=== PATIENT | female | born 1935 | race Two or more races ===

== ENCOUNTER 2021-06-28 09:47 | Inpatient (IN) | payer MEDICARE ==
[~2021-06-28] VITALS: Ht 160 cm; Wt 41.7 kg
--- NOTE | 2021-06-28 10:20 | NUR ---
BIB SON, DOG BITE TO RIGHT FOREARM SUSTAINED WHILE PETTING NEIGHBOR'S DOG2 DAYS AGO. AMBULATORY, PLACED ON BED, AAOX4. SEEN BY
[2021-06-28] MEDS ORDERED: BACI/NEOM/POLY B OINT PKT 1 UDPKT PACKET TP ONE (10:30)
[2021-06-28] MEDS ORDERED: IV NS 0.9% 1,000 ML BAG IV ONE (12:30)
[2021-06-28] MEDS ORDERED: PIPERACILLIN /TAZOBACTAM 3.375 G in IV D5W 50 ML IV ONE (12:30)
[2021-06-28] MEDS ORDERED: VANCOMYCIN 1 GM in IV D5W 250 ML IV ONE (12:30)
--- NOTE | 2021-06-28 12:36 | NUR ---
COVID ANTIGEN SWAB DONE AND SENT TO THE LAB
[2021-06-28 12:59] LABS: CALCIUM, SERUM 8.8 mg/dL (8.5-10.1); CREATININE 1.3 mg/dL (0.6-1.3); POTASSIUM 3.5 mmol/L (3.5-5.1)
[2021-06-28 13:12] LABS: BASOPHILS % (AUTO) 0.2 % (0.0-2.0); HEMATOCRIT 39 % (33-45); HEMOGLOBIN 12.9 g/dL (11.5-14.8); LYMPHOCYTES # (AUTO) 1.2 K/uL (0.8-4.8); MEAN CORPUSCULAR HGB CONC 33 g/dl (31.0-36.0); MEAN CORPUSCULAR VOLUME 87 fL (82-100); MONOCYTES % (AUTO) 9.3 % (2.0-12.0); NEUTROPHILS # (AUTO) 8.6 K/uL (1.8-8.9); NEUTROPHILS % (AUTO) 79.5 % (43.0-81.0); PLATELET COUNT (AUTO) 242 K/uL (150-450); RED BLOOD CELL COUNT(AUTO) 4.51 MIL/uL (4.0-5.2); WHITE BLOOD COUNT (AUTO) 10.8 K/uL (4.3-11.0)
--- NOTE | 2021-06-28 13:42 | NUR ---
BED [id number]
--- NOTE | 2021-06-28 13:58 | NUR ---
REPORT GIVEN TO NURSE VALDIVIA FOR DEACON
--- NOTE | 2021-06-28 14:55 | NUR ---
MS RN NOTES PATIENT ADMITTED FROM ER REPORT GIVEN BY WADE ESTRADA. ALERT ORIENTED X4. NO ACUTE DISTRESS NOTED. RIGHT LOWER ARM DRESSING XCLEAN DRY AND INTACT WITH ARM SLING IN PLACE. DENIED ANY PAIN AT THIS TIME. ORIENTED TO THE ROOM. SAFETY MEASURES IN PLACE. CALL LIGHT WITHIN REACH. WILL CONTINUE TO MONITOR ACCORDINGLY.
--- NOTE | 2021-06-28 15:52 | NUR ---
MS RN NOTES NOTIFIED DR ANASTASIA IVEY REGARDING PATIENT ARRIVAL IN THE UNIT, MADE AWARE THAT NO ADMISSION ORDERS YET AND THAT VTE SCORE IS 5, AWAITING FOR CALL BACK.
[2021-06-28 16:00] VITALS: BP 113/59
[2021-06-28] MEDS ORDERED: LORA-259 PO (16:12)
[2021-06-28] MEDS ORDERED: HYDROCODONE/APAP 5/325MG TABLET PO PRN (16:30)
[2021-06-28] MEDS ORDERED: ACETAMINOPHEN 325 MG TABLET PO PRN (16:30)
[2021-06-28] MEDS ORDERED: ONDANSETRON HCL/PF 4 MG/2 ML VIAL IVP PRN (16:30)
[2021-06-28] MEDS ORDERED: Z GUARD REMEDY 4 OZ OINT TP PRN (16:30)
[2021-06-28] MEDS: ENOXAPARIN SODIUM 30 MG/0.3 ML DISP.SYRIN SQ SCH (17:26)
[2021-06-28] MEDS ORDERED: PIPERACILLIN /TAZOBACTAM 3.375 G in IV D5W 50 ML IV SCH (18:00)
[2021-06-28] MEDS: ZOSYN IVPB 2.25 G in IV D5W 50ml IV SCH (18:29)
--- NOTE | 2021-06-28 18:51 | NUR ---
MS RN CLOSING NOTES PATIENT LYING IN BED, ALERT ORIENTED X4. NO ACUTE DISTRESS NOTED. RIGHT LOWER ARM DRESSING CLEAN DRY AND INTACT WITH ARM SLING IN PLACE. DENIED ANY PAIN AT THIS TIME. NEEDS ATTENDED AND ANTICIPATED. SAFETY MEASURES IN PLACE. CALL LIGHT WITHIN REACH. WILL ENDORSE TO NIGHT NURSE FOR CONTINUITY OF CARE.
--- NOTE | 2021-06-28 19:30 | NUR ---
MS RN OPENING NOTE RECEIVED PT AWAKE IN BED. A/O X 4, ABLE TO MAKE NEEDS KNOWN. PT STABLE ON ROOM AIR. NO SOB OR S/S OF RESPIRATORY DISTRESS. BREATHING EVEN AND UNLABORED. IV ACCESS LFA 20 GAUGE, INTACT AND PATENT. R FOREARM CAST C/D/I. SAFETY PRECAUTIONS IN PLACE. BED IN LOWEST LOCKED POSITION, HOB ELEVATED, SIDE RAILS UP X2, AND CALL LIGHT AND TABLE WITHIN REACH. ALL NEEDS MET AT THIS TIME.
[2021-06-28 20:58] VITALS: BP 111/65
[2021-06-29] MEDS: ZOSYN IVPB 2.25 G in IV D5W 50ml IV SCH ×4 (00:42→18:32)
[2021-06-29 06:31] LABS: BASOPHILS % (AUTO) 0.2 % (0.0-2.0); EOSINOPHILS % (AUTO) 0.1 % (0.0-6.0); HEMATOCRIT 35 % (33-45); HEMOGLOBIN 11.4 g/dL (11.5-14.8); LYMPHOCYTES % (AUTO) 9.4 % (20.0-44.0); MEAN CORPUSCULAR HGB CONC 33 g/dl (31.0-36.0); MEAN CORPUSCULAR VOLUME 87 fL (82-100); MONOCYTES % (AUTO) 9.8 % (2.0-12.0); NEUTROPHILS # (AUTO) 8.2 K/uL (1.8-8.9); NEUTROPHILS % (AUTO) 80.5 % (43.0-81.0); PLATELET COUNT (AUTO) 231 K/uL (150-450); RED BLOOD CELL COUNT(AUTO) 3.99 MIL/uL (4.0-5.2); WHITE BLOOD COUNT (AUTO) 10.2 K/uL (4.3-11.0)
--- NOTE | 2021-06-29 06:41 | NUR ---
MS RN CLOSING NOTE PT AWAKE IN BED. A/O X 4, ABLE TO MAKE NEEDS KNOWN. PT STABLE ON ROOM AIR. NO SOB OR S/S OF RESPIRATORY DISTRESS. BREATHING EVEN AND UNLABORED. IV ACCESS LFA 20 GAUGE, INTACT AND PATENT. R FOREARM CAST C/D/I. SAFETY PRECAUTIONS IN PLACE AT ALL TIMES. BED IN LOWEST LOCKED POSITION, HOB ELEVATED, SIDE RAILS UP X2, AND CALL LIGHT AND TABLE WITHIN REACH. ALL NEEDS MET AT THIS TIME AND WILL ENDORSE TO ONCOMING NURSE FOR DEACON.
[2021-06-29 07:13] LABS: ALBUMIN 2.4 g/dL (3.4-5.0); BILIRUBIN,TOTAL 0.7 mg/dL (0.2-1.0); CALCIUM, SERUM 8.1 mg/dL (8.5-10.1); CREATININE 1.1 mg/dL (0.6-1.3); MAGNESIUM 2.1 mg/dL (1.8-2.4); PHOSPHORUS 3.5 mg/dL (2.5-4.9); POTASSIUM 3.6 mmol/L (3.5-5.1); TOTAL PROTEIN, SERUM 5.8 g/dL (6.4-8.2)
--- NOTE | 2021-06-29 07:20 | NUR ---
RN OPENING NOTE- PT ASLEEP IN BED, EASILY AWAKENED, A/O X 4, ABLE TO MAKE NEEDS KNOWN. PT STABLE ON ROOM AIR. NO SOB OR S/S OF RESPIRATORY DISTRESS. BREATHING EVEN AND NON-LABORED. IV ACCESS LFA 20 GAUGE, RFA SPLINT C/D/I. SAFETY PRECAUTIONS IN PLACE. BED IN LOWEST LOCKED POSITION, HOB ELEVATED, SIDE RAILS UP X2, AND CALL LIGHT AND TABLE WITHIN REACH. ALL NEEDS MET AT THIS TIME. MONITOR / ASSIST
[2021-06-29] MEDS: PANTOPRAZOLE 40 MG TABLET.DR PO SCH (07:50)
[2021-06-29 07:57] LABS: THYROID STIMULATING HORMONE 1.479 uIU/mL (0.358-3.74)
[2021-06-29] MEDS: ENOXAPARIN SODIUM 30 MG/0.3 ML DISP.SYRIN SQ SCH (08:29)
--- NOTE | 2021-06-29 09:16 | NUR ---
WOUND CARE CONSULT: PT SEEN FOR PUNCTURE WOUNDS TO RT ARM, PRESENT ON ADMISSION. RECOMMENDATIONS MADE FOR WOUND CARE AND SKIN PROTECTION. DISCUSSED WITH NURSING STAFF. MSG LEFT FOR DR OSULLIVAN. IN AGREEMENT WITH PLAN OF CARE. Addendum: 06/29/21 at 0926 by HERNANDEZ MEREDITH WNDNU SPLINT WAS GENTLY OPENED, THEN REPLACED. ARM ELEVATED. WOUND CARE ORDERS APPROVED BY DR OSULLIVAN FOR [employer].
[2021-06-29] MEDS: NICOTINE PATCH (21MG) 21 MG PATCH.TD24 TD SCH (09:25)
[2021-06-29] MEDS ORDERED: CLOP75TA15 PO (16:40)
[2021-06-29] MEDS ORDERED: DOXA8TAB79 PO (16:40)
[2021-06-29] MEDS ORDERED: DILT180C93 PO (16:40)
[2021-06-29] MEDS ORDERED: ATOR40TA PO (16:40)
[2021-06-29] MEDS ORDERED: LORA-259 PO (16:40)
[2021-06-29] MEDS ORDERED: LORAZEPAM 1 MG TABLET PO PRN (17:00)
[2021-06-29] MEDS: DILTIAZEM HCL CD 180 MG PO SCH (17:35)
[2021-06-29] MEDS: ATORVASTATIN 40 MG TABLET PO SCH (17:35)
--- NOTE | 2021-06-29 18:43 | NUR ---
RN CLOSING NOTE- WOUND CARE DONE, REVIEWED WOUND AND HAS PT PREPPED FOR SURGICAL DEBRIDEMENT TOMORROW MORNING. CONSENT DONE AND IN CHART. NPO AFTER MN X RX. PT CALM INTERACTIVE, AOX4, DENIES PAIN. NEEDS ATTENDED. SIDE RAILS UP. CALL LIGHT IN REACH. BED LOCKED. MONITOR
--- NOTE | 2021-06-29 19:35 | NUR ---
MS RN OPENING NOTES RECEIVED PATIENT LAYING AWAKE IN BED. A/O X 4. PATIENT WITH REGULAR AND UNLABORED BREATHING ON ROOM AIR, TOLERATED WELL. NO SIGNS AND SYMPTOMS OF DISTRESS NOTED AT THIS TIME. NO COMPLAINS OF PAIN OR DISCOMFORT AT THIS TIME. IV ACCESS LFA G #20 SL. IV ACCESS PATENT AND INTACT. SAFETY PRECAUTIONS ENFORCED WITH BED LOCKED AND AT LOWEST POSITION. SIDERAILS UP X2. CALL LIGHT WITHIN REACH AT ALL TIMES. WILL CONTINUE TO MONITOR PATIENT.
[2021-06-29 20:00] VITALS: BP 94/50
[2021-06-30] MEDS: ZOSYN IVPB 2.25 G in IV D5W 50ml IV SCH ×5 (06:06→18:15)
[2021-06-30 06:08] LABS: CALCIUM, SERUM 8.2 mg/dL (8.5-10.1); CARBON DIOXIDE 28 mmol/L (21-32); CHLORIDE 106 mmol/L (98-107); CREATININE 1.2 mg/dL (0.6-1.3); GLUCOSE 100 mg/dL (74-106); MAGNESIUM 2.1 mg/dL (1.8-2.4); PHOSPHORUS 3.9 mg/dL (2.5-4.9); POTASSIUM 3.4 mmol/L (3.5-5.1); SODIUM SERUM 141 mmol/L (136-145); UREA NITROGEN, BLOOD 18 mg/dL (7-18)
[2021-06-30 06:20] LABS: BASOPHILS % (AUTO) 0.4 % (0.0-2.0); EOSINOPHILS % (AUTO) 0.2 % (0.0-6.0); HEMATOCRIT 34 % (33-45); HEMOGLOBIN 11.3 g/dL (11.5-14.8); LYMPHOCYTES # (AUTO) 1.2 K/uL (0.8-4.8); LYMPHOCYTES % (AUTO) 14.1 % (20.0-44.0); MEAN CORPUSCULAR HGB CONC 33 g/dl (31.0-36.0); MEAN CORPUSCULAR VOLUME 87 fL (82-100); MONOCYTES # (AUTO) 0.9 K/uL (0.1-1.30); MONOCYTES % (AUTO) 10.3 % (2.0-12.0); NEUTROPHILS # (AUTO) 6.6 K/uL (1.8-8.9); PLATELET COUNT (AUTO) 246 K/uL (150-450); RED BLOOD CELL COUNT(AUTO) 3.92 MIL/uL (4.0-5.2); WHITE BLOOD COUNT (AUTO) 8.7 K/uL (4.3-11.0)
--- NOTE | 2021-06-30 07:03 | NUR ---
MS RN CLOSING NOTES PATIENT STILL LAYING AWAKE IN BED. A/O X 4. PATIENT WITH REGULAR AND UNLABORED BREATHING ON ROOM AIR, TOLERATED WELL. NO SIGNS AND SYMPTOMS OF DISTRESS NOTED AT THIS TIME. NO COMPLAINS OF PAIN OR DISCOMFORT AT THIS TIME. IV ACCESS LFA G #20 SL. IV ACCESS PATENT AND INTACT. SAFETY PRECAUTIONS ENFORCED WITH BED LOCKED AND AT LOWEST POSITION. SIDERAILS UP X2. CALL LIGHT WITHIN REACH AT ALL TIMES. WILL ENDORSE CONTINUITY OF CARE TO DAY SHIFT NURSE.
[2021-06-30] MEDS ORDERED: FENTANYL PF 100MCG/2ML AMPUL ONE (07:13)
[2021-06-30] MEDS ORDERED: FAMOTIDINE/PF INJ 20 MG/2 ML VIAL IV ONE (07:14)
[2021-06-30] MEDS: PANTOPRAZOLE 40 MG TABLET.DR PO SCH (07:30)
--- NOTE | 2021-06-30 07:30 | NUR ---
MS RN OPENING NOTE RECEIVED PT AWAKE IN BED. A/O X 4, ABLE TO MAKE NEEDS KNOWN. PT STABLE ON ROOM AIR. NO SOB OR S/S OF RESPIRATORY DISTRESS. BREATHING EVEN AND UNLABORED. IV ACCESS LFA 20 GAUGE, INTACT AND PATENT. R FOREARM CAST C/D/I. PATIENT IS GOING FOR SURGERY OF THE RFA. VITAL SIGNS CHECKED IN NORMAL RANGES.SAFETY PRECAUTIONS IN PLACE. BED IN LOWEST LOCKED POSITION, HOB ELEVATED, SIDE RAILS UP X2, AND CALL LIGHT AND TABLE WITHIN REACH. WILL CONTINUE TO MONITOR.
[2021-06-30] MEDS ORDERED: POLYMYXIN B SULFATE 0 UNITS ONE (07:39)
[2021-06-30] MEDS ORDERED: ANESTHESIA TRAY IN PYXIS 1 EA TRAY MC ONE (07:40)
[2021-06-30] MEDS: DOXAZOSIN MESYLATE (4 MG) 4 MG TABLET PO SCH (09:00)
[2021-06-30] MEDS: DILTIAZEM HCL CD 180 MG PO SCH (09:00)
[2021-06-30] MEDS ORDERED: BUPIVACAINE 0.25% 75 MG/30 ML VIAL ONE (09:08)
[2021-06-30] MEDS ORDERED: POTASSIUM CHLORIDE 20 MEQ TAB.PRT.SR PO SCH (09:30)
[2021-06-30] MEDS: NICOTINE PATCH (21MG) 21 MG PATCH.TD24 TD SCH (11:32)
[2021-06-30] MEDS: ENOXAPARIN SODIUM 30 MG/0.3 ML DISP.SYRIN SQ SCH (11:51)
[2021-06-30] MEDS: ATORVASTATIN 40 MG TABLET PO SCH (17:47)
--- NOTE | 2021-06-30 19:30 | NUR ---
MS RN CLOSING NOTE PT AWAKE IN BED. A/O X 4, ABLE TO MAKE NEEDS KNOWN. PT STABLE ON ROOM AIR. NO SOB OR S/S OF RESPIRATORY DISTRESS. BREATHING EVEN AND UNLABORED. IV ACCESS LFA 20 GAUGE, INTACT AND PATENT. R FOREARM CAST C/D/I. S/P OF THE RFA DEBRIDEMENT. VITAL SIGNS CHECKED IN NORMAL RANGES.NO PAIN NOTED. ALL DUE MEDS GIVEN ORDERED. SAFETY PRECAUTIONS IN PLACE. DAUGHTER VISITED THE PATIENT. BED IN LOWEST LOCKED POSITION, HOB ELEVATED, SIDE RAILS UP X2, AND CALL LIGHT AND TABLE WITHIN REACH. WILL ENDORSE FOR DEACON..
[2021-06-30 20:00] VITALS: BP 70/40
--- NOTE | 2021-06-30 20:00 | NUR ---
MS RN OPENING NOTES: RECEIVED PATIENT AWAKE IN BED, BED IN LOW POSITION, CALL LIGHTS WITHIN REACH, NO COMPLAIN OF PAIN AND DISCOMFORT AT THIS TIME,PATIENT IS A/OX4 AMBULATORY WITH SUPERVISION ABLE TO MAKE NEEDS KNOWN ON O2 INHALATION AT 2LPM SATURATING WELL, IV LINE AT LFA#20SL, PATIENT KEPT CLEAN AND DRY ALL NEEDS MET WILL CONTINUE TO MONITOR.
[2021-06-30] MEDS ORDERED: IV NS 0.9% 250 ML IV ONE (21:30)
--- NOTE | 2021-06-30 21:48 | NUR ---
RN NOTES: PATIENT WAS NOTED WITH LOW BLOOD PRESSURE INITIAL READING AT BP-73/33 HR-85, DID MANUAL READING BP-70/40 HR-82, NOTIFY DR SKELTON AND ORDER 0.9NSS 1000 ML ONE TIME NOTED AND CARRY OUT, WILL CONTINUE TO MONITOR.
[2021-06-30 21:51] VITALS: BP 70/40
[2021-07-01] MEDS: ZOSYN IVPB 2.25 G in IV D5W 50ml IV SCH ×4 (01:03→18:35)
--- NOTE | 2021-07-01 06:12 | NUR ---
RN CLOSING NOTES: PATIENT SLEEP IN BED COMFORTABLY, BED IN LOW POSITION, CALL LIGHTS WITHIN REACH, NO COMPLAIN OF PAIN AND DISCOMFORT AT THIS TIME, PATIENT IS A/OX4 ABLE TO MAKE NEEDS KNOWN, ON O2 INHALATION AT 2 LPM, WITH IV LINE AT LFA#20SL,KEPT CLEAN AND DRY ALL NEEDS MET, ENDORSE TO INCOMING SHIFT.
[2021-07-01 06:35] LABS: BASOPHILS % (AUTO) 0.5 % (0.0-2.0); EOSINOPHILS % (AUTO) 0.2 % (0.0-6.0); HEMATOCRIT 32 % (33-45); LYMPHOCYTES # (AUTO) 1.1 K/uL (0.8-4.8); LYMPHOCYTES % (AUTO) 14.3 % (20.0-44.0); MEAN CORPUSCULAR HGB CONC 32 g/dl (31.0-36.0); MEAN CORPUSCULAR VOLUME 90 fL (82-100); MONOCYTES # (AUTO) 0.9 K/uL (0.1-1.30); MONOCYTES % (AUTO) 12.2 % (2.0-12.0); NEUTROPHILS # (AUTO) 5.4 K/uL (1.8-8.9); NEUTROPHILS % (AUTO) 72.8 % (43.0-81.0); PLATELET COUNT (AUTO) 228 K/uL (150-450); WHITE BLOOD COUNT (AUTO) 7.5 K/uL (4.3-11.0)
--- NOTE | 2021-07-01 07:00 | NUR ---
MS RN OPENING NOTES PATIENT LAYING IN BED, A/O X 4, ABLE TO MAKE NEEDS KNOWN. SPLINT AND TIANA BANDAGE IN PLACE IN R ARM, NO COMPLAINTS OF PAIN OR DISTRESS AT THIS TIME. PATIENT TOLERATING WELL ON 2 LPM O2 VIA CANNULA WITH NO SOB OR S/S RESPIRATORY DISTRESS. L FA # 20 SL CLEAN, INTACT, AND FLUSHING WELL. SAFETY MEASURES IN PLACE: BED IN LOWEST LOCKED POSITION, SIDE RAILS UP X 2, CALL LIGHT WITHIN REACH. WILL CONTINUE TO MONITOR.
[2021-07-01 07:08] LABS: CALCIUM, SERUM 7.5 mg/dL (8.5-10.1); CARBON DIOXIDE 28 mmol/L (21-32); CHLORIDE 109 mmol/L (98-107); CREATININE 1.5 mg/dL (0.6-1.3); GLUCOSE 111 mg/dL (74-106); MAGNESIUM 2.1 mg/dL (1.8-2.4); SODIUM SERUM 142 mmol/L (136-145); UREA NITROGEN, BLOOD 25 mg/dL (7-18)
[2021-07-01] MEDS: PANTOPRAZOLE 40 MG TABLET.DR PO SCH (07:34)
[2021-07-01 07:45] LABS: PHOSPHORUS 4.4 mg/dL (2.5-4.9)
[2021-07-01] MEDS: NICOTINE PATCH (21MG) 21 MG PATCH.TD24 TD SCH (08:24)
[2021-07-01] MEDS: DOXAZOSIN MESYLATE (4 MG) 4 MG TABLET PO SCH (08:25)
[2021-07-01] MEDS: DILTIAZEM HCL CD 180 MG PO SCH (08:28)
[2021-07-01] MEDS: ENOXAPARIN SODIUM 30 MG/0.3 ML DISP.SYRIN SQ SCH (08:28)
[2021-07-01 08:30] VITALS: BP 94/54
--- NOTE | 2021-07-01 09:29 | NUR ---
WOUND CARE FOLLOW UP: DISCUSSED POSTOP WOUND CARE TREATMENT WITH DR OSULLIVAN. CLARIFIED AND DISCUSSED WITH NURSING STAFF AND AR MANAGER. HOME HEALTH WILL BE NEEDED. IN AGREEMENT WITH PLAN OF CARE.
[2021-07-01 16:49] VITALS: BP 119/70
[2021-07-01] MEDS: ATORVASTATIN 40 MG TABLET PO SCH (18:34)
--- NOTE | 2021-07-01 19:00 | NUR ---
MS RN CLOSING NOTES PATIENT LAYING IN BED, A/O X 4, ABLE TO MAKE NEEDS KNOWN. SPLINT AND TIANA BANDAGE IN PLACE IN R ARM, NO COMPLAINTS OF PAIN OR DISTRESS AT THIS TIME. PATIENT TOLERATING WELL ON 2 LPM O2 VIA CANNULA WITH NO SOB OR S/S RESPIRATORY DISTRESS. L FA # 20 SL CLEAN, INTACT, AND FLUSHING WELL. SAFETY MEASURES IN PLACE: BED IN LOWEST LOCKED POSITION, SIDE RAILS UP X 2, CALL LIGHT WITHIN REACH. ALL NEEDS MET. WILL ENDORSE TO FRONT CLERK FOR DEACON.
--- NOTE | 2021-07-01 20:00 | NUR ---
MS RN OPENING NOTES PATIENT RECEIVED IN BED, A/O X 4,WITH 02 VIA NASSAL CANNULA 2LPM UBALDO WELL WITH NO SIGN SOB/DISTRESS NOTED.SPLINT AND TIANA BANDAGE IN PLACE IN R ARM,NO COMPLAINE OF PAIN/DISCOMFORT.L FA # 20 SL CLEAN, INTACT, AND FLUSHING WELL. SAFETY MEASURES IN PLACE: BED IN LOWEST LOCKED POSITION, SIDE RAILS UP X 2, CALL LIGHT WITHIN REACH. WILL CONTINUE TO MONITOR.
[2021-07-01 20:33] VITALS: BP 112/70
[2021-07-02] MEDS: ZOSYN IVPB 2.25 G in IV D5W 50ml IV SCH ×3 (00:48→12:12)
[2021-07-02 02:52] VITALS: BP 112/70
--- NOTE | 2021-07-02 07:00 | NUR ---
MS RN OPENING NOTES PATIENT LAYING IN BED, A/O X 4, ABLE TO MAKE NEEDS KNOWN. SPLINT AND TIANA BANDAGE IN PLACE IN R ARM, NO COMPLAINTS OF PAIN OR DISTRESS AT THIS TIME. PATIENT TOLERATING WELL ON 2 LPM O2 WITH NO SOB OR S/S RESPIRATORY DISTRESS. L FA # 20 SL CLEAN AND INTACT BUT WITH SOME BURNING UPON FLUSHING, EVER PICC TO BE PLACED TODAY PRIOR TO D/C TO CONTINUE ABX. SAFETY MEASURES IN PLACE: BED IN LOWEST LOCKED POSITION, SIDE RAILS UP X 2, CALL LIGHT WITHIN REACH. ALL NEEDS MET. WILL CONTINUE TO MONITOR.
[2021-07-02] MEDS: PANTOPRAZOLE 40 MG TABLET.DR PO SCH (07:49)
--- NOTE | 2021-07-02 07:53 | NUR ---
MS RN CLOSING NOTES PATIENT LAYING IN BED, A/O X 4, ABLE TO MAKE NEEDS KNOWN. SPLINT AND TIANA BANDAGE IN PLACE IN R ARM, NO COMPLAINTS OF PAIN OR DISTRESS AT THIS TIME. PATIENT TOLERATING WELL ON 2 LPM O2 VIA CANNULA WITH NO SOB OR S/S RESPIRATORY DISTRESS. L FA # 20 SL CLEAN, INTACT, AND FLUSHING WELL. SAFETY MEASURES IN PLACE: BED IN LOWEST LOCKED POSITION, SIDE RAILS UP X 2, CALL LIGHT WITHIN REACH. ALL NEEDS MET. WILL ENDORSE TO ELECTRICIAN UNDERGROUND FOR DEACON.
[2021-07-02 08:00] VITALS: BP 135/88
[2021-07-02] MEDS: DOXAZOSIN MESYLATE (4 MG) 4 MG TABLET PO SCH (08:45)
[2021-07-02 08:46] VITALS: BP 135/88
[2021-07-02] MEDS: ENOXAPARIN SODIUM 30 MG/0.3 ML DISP.SYRIN SQ SCH (08:46)
[2021-07-02] MEDS: DILTIAZEM HCL CD 180 MG PO SCH (08:46)
[2021-07-02] MEDS: NICOTINE PATCH (21MG) 21 MG PATCH.TD24 TD SCH (08:46)
[2021-07-02] MEDS ORDERED: ERTA1VIA4 IJ (12:10)
--- NOTE | 2021-07-02 13:45 | NUR ---
MS SPRIGGER NOTES PATIENT LAYING IN BED, A/O X 4, ABLE TO MAKE NEEDS KNOWN. V/S STABLE. PATIENT WITH SON AT BEDSIDE, BOTH MADE AWARE OF MD DISCHARGE ORDERS AND INSTRUCTIONS. PATIENT AND SON VERBALIZED UNDERSTANDING OF MD DISCHARGE INSTRUCTIONS, AND SON SIGNED MD DISCHARGE INSTRUCTIONS SHEET. PATIENT AND SON ALSO VERBALIZED POSSESSION OF ALL BELONGINGS AND SON SIGNED BELONGINGS LIST. ALL DISCHARGE PAPERWORK PROVIDED TO PATIENT AND SON. WOUND CARE PROVIDED FOR PATIENT RIGHT ARM, DISCHARGE WOUND CARE AND ANTIBIOTIC TREATMENT REGIME EXPLAINED. PATIENT PERIPHERAL IV LINE AND ID BAND REMOVED. PICC LINE REMAINED IN PLACE FOR POST DISCHARGE IV ANTIBIOTIC TREATMENT. PATIENT TRANSFERRED TO WHEELCHAIR WITHOUT INCIDENT AND TRANSFERRED OFF OF UNIT BY CATASTROPHE CLAIMS SUPERVISOR.
== END 2021-07-02 14:30 | disposition home health service (06) | DRG 464 ==
LOC: ER 09:57 → MED 13:45
PROVIDERS: ADMIT Nurse Practitioner Acute Care; ATTEND Nurse Practitioner Acute Care
PROC: 0PBH0ZZ Excision of Right Radius, Open Approach (ICD-10-PCS; principal; 2021-06-30)
PROC: 0PSHXZZ Reposition Right Radius, External Approach (ICD-10-PCS; 2021-06-30)
PROC: 0JBG0ZZ Excision of Right Lower Arm Subcutaneous Tissue and Fascia, Open Approach (ICD-10-PCS; 2021-06-30)
PROC: 02HV33Z Insertion of Infusion Device into Superior Vena Cava, Percutaneous Approach (ICD-10-PCS; 2021-07-02)
PROC: B548ZZA Ultrasonography of Superior Vena Cava, Guidance (ICD-10-PCS; 2021-07-02)
DX: S52.501A Unspecified fracture of the lower end of right radius, initial encounter for closed fracture (principal); L03.113 Cellulitis of right upper limb; D68.59 Other primary thrombophilia; J90 Pleural effusion, not elsewhere classified; E44.0 Moderate protein-calorie malnutrition; I48.91 Unspecified atrial fibrillation; W54.0XXA Bitten by dog, initial encounter; E78.5 Hyperlipidemia, unspecified; F41.9 Anxiety disorder, unspecified; H90.3 Sensorineural hearing loss, bilateral; J44.9 Chronic obstructive pulmonary disease, unspecified; Z79.02 Long term (current) use of antithrombotics/antiplatelets; Y92.414 Local residential or business street as the place of occurrence of the external cause
CPT/HCPCS: 36415; 71045-TC; 73090-TC; 80048-TC; 80053-TC; 80061-TC; 83735-TC; 84100-TC; 84443-TC; 85025-TC; 85610-TC; 85730-TC; 86803; 86850-TC; 87040-TC; 87070-TC; 87075-TC; 87081-TC; 87806; A4217; A6253; A6403; A6407; G0378; J0690; J1650; J2405; J2543; J2704; J2765; J3010; J3370; J3490; J7030; J7050; J7060

== ENCOUNTER 2021-12-01 14:41 | Inpatient (IN) | payer MEDICARE ==
[~2021-12-01] VITALS: Ht 160 cm; Wt 36.7 kg
[~2021-12-01 14:41] MED LIST: ATOR40TA PO; CLOP75TA15 PO; DILT180C93 PO; DOXA8TAB79 PO; ERTA1VIA4 IJ; LORA-259 PO
--- NOTE | 2021-12-01 14:45 | NUR ---
RECIVED PT 86 YRS FEMALE CAME FROM HOME WALKING IN WITH SAUD C/O CONFUSED AND SLURRED SPEECH THIS MORNING LAST TIME TIME SEE NORMAL 11/30/21 AT 2000PM
--- NOTE | 2021-12-01 14:49 | NUR ---
CODE STROKE CALLED
[2021-12-01] MEDS ORDERED: CT SWABBABLE VALVE TRANS SET 1 EA INFUS.SET MC ONE (14:53)
[2021-12-01] MEDS ORDERED: IOHEXOL-350 100 ML VIAL IV ONE (14:53)
[2021-12-01] MEDS ORDERED: IV NS 0.9% 250 ML IV ONE (14:53)
--- NOTE | 2021-12-01 14:53 | NUR ---
PT TO CT VIA ACLS PROTOCALS.
--- NOTE | 2021-12-01 14:55 | NUR ---
CALLED [facility] [phone] WILL BE JASMYN DIEHL
--- NOTE | 2021-12-01 15:05 | NUR ---
GAUTAM AT BED SIDE (HERNANDEZ RAMIREZ UPDATE
--- NOTE | 2021-12-01 15:08 | NUR ---
NEUROLOGIST DR. ZAVALA TO TELEGRAM SPOOK WITH PT AND DOGHTER AT BED SIDE
--- NOTE | 2021-12-01 15:15 | NUR ---
DR. GENTILE SPEAKING WITH DR. ROJAS.
[2021-12-01 15:19] LABS: HEMATOCRIT 49 % (33-45); HEMOGLOBIN 15.4 g/dL (11.5-14.8); LYMPHOCYTES # (AUTO) 0.7 K/uL (0.8-4.8); LYMPHOCYTES % (AUTO) 4.6 % (20.0-44.0); MEAN CORPUSCULAR HGB CONC 32 g/dl (31.0-36.0); MEAN CORPUSCULAR VOLUME 95 fL (82-100); MONOCYTES # (AUTO) 1.2 K/uL (0.1-1.30); MONOCYTES % (AUTO) 7.9 % (2.0-12.0); NEUTROPHILS # (AUTO) 13.5 K/uL (1.8-8.9); NEUTROPHILS % (AUTO) 87.5 % (43.0-81.0); PLATELET COUNT (AUTO) 294 K/uL (150-450); RED BLOOD CELL COUNT(AUTO) 5.14 MIL/uL (4.0-5.2); WHITE BLOOD COUNT (AUTO) 15.5 K/uL (4.3-11.0)
[2021-12-01 15:33] LABS: CALCIUM, SERUM 9.2 mg/dL (8.5-10.1); CARBON DIOXIDE 23 mmol/L (21-32); CHLORIDE 101 mmol/L (98-107); CREATININE 1.7 mg/dL (0.6-1.3); GLUCOSE 208 mg/dL (74-106); POTASSIUM 4.4 mmol/L (3.5-5.1); SODIUM SERUM 139 mmol/L (136-145); UREA NITROGEN, BLOOD 27 mg/dL (7-18)
--- NOTE | 2021-12-01 15:34 | NUR ---
COVID SWAB DONE AND SENT TO LAB
--- NOTE | 2021-12-01 15:47 | NUR ---
LACTIC ACID 7 DR. ROJAS NOTFED AND AWARE
[2021-12-01] MEDS ORDERED: DEXAMETHASONE SOD PHOSPHATE 4 MG in IV D5W 50 ML IV ONE (16:00)
[2021-12-01] MEDS ORDERED: DEXAMETHASONE SOD PHOSPHATE 4 MG/ML VIAL ONE (16:32)
--- NOTE | 2021-12-01 16:37 | NUR ---
CALLED OFFICE OF DR ANDERSON [phone], STAFF WILL FAX MED LIST TO ED
[2021-12-01] MEDS ORDERED: PIPERACILLIN /TAZOBACTAM 3.375 G VIAL IV ONE (16:46)
[2021-12-01] MEDS ORDERED: LEVETIRACETAM (500MG) 500 MG in IV NS 0.9% 100 ML IV SCH (17:00)
[2021-12-01] MEDS ORDERED: DEXAMETHASONE SOD PHOSPHATE 4 MG/ML VIAL IVP ONE (17:00)
[2021-12-01] MEDS ORDERED: IV NS 0.9% 1,000 ML BAG IV ONE (17:30)
[2021-12-01] MEDS ORDERED: PIPERACILLIN /TAZOBACTAM 3.375 G in IV D5W 50 ML IV SCH (18:00)
--- NOTE | 2021-12-01 18:00 | NUR ---
Nini hammer in ED - 12/01/21 at 1827 by ALEC AWAITING EVALUATION BY ER PROVIDER.
--- NOTE | 2021-12-01 18:05 | NUR ---
LACTETE 5.1 DR[address] ROJAS NOTEFED
[2021-12-01 18:11] LABS: BILIRUBIN,DIRECT 0.1 mg/dL (0.0-0.2); BILIRUBIN,TOTAL 0.5 mg/dL (0.2-1.0)
--- NOTE | 2021-12-01 18:27 | NUR ---
VITAL SIGNS UPDATED.
--- NOTE | 2021-12-01 18:38 | NUR ---
GOT BED > CHANGE OF SHEET TO 106
--- NOTE | 2021-12-01 19:05 | NUR ---
SEEN BY HESPTALIST AT BED SPOOKING WITH SAUD
--- NOTE | 2021-12-01 19:24 | NUR ---
CARDIOLOGY AT BED SIDE SPOOKING WITH ASUD
--- NOTE | 2021-12-01 19:25 | NUR ---
HAND OFF BRANDON ESTRADA
[2021-12-01] MEDS ORDERED: ONDANSETRON HCL/PF 4 MG/2 ML VIAL IVP PRN (19:30)
[2021-12-01] MEDS ORDERED: ACETAMINOPHEN 325 MG TABLET PO PRN (19:30)
--- NOTE | 2021-12-01 19:58 | NUR ---
report given to jesús
--- NOTE | 2021-12-01 20:05 | NUR ---
RN ADMITTING NOTE Received patient from ER via debbi, accompanied by Yudith ESTRADA and EMT, pt AAO x 1, very confused and has been trying to get up and pull out IV lines. Transferred to bed via 2 person assist, saturation at 94% on room air, afib on the monitor, HR is 88. IV line at LAC 20g patent and flushing well, no signs of infiltration, saline locked. Comprehensive assessment done, no skin issues noted. Safety measures in place, HOB elevated, bed is locked and at lowest position, bed alarm on, call light within reach of patient. Will cont to monitor and carry out MD orders.
--- NOTE | 2021-12-01 20:12 | NUR ---
PT TRANSPORTED TO ROOM 106 ON CARDIAC PER ACLS IN STABLE CONDITION
[2021-12-01 20:30] VITALS: BP 117/68
--- NOTE | 2021-12-01 22:59 | NUR ---
urine collected and sent to lab
[2021-12-01 23:01] LABS: BILIRUBIN,URINE SMALL (NEGATIVE); COLOR,URINE YELLOW (YELLOW); LEUKOCYTE ESTERASE ,URINE NEGATIVE (NEGATIVE); NITRITE, URINE NEGATIVE (NEGATIVE); PROTEIN,URINE >=300 mg/dl (NEGATIVE); UGLUCOSE NEGATIVE (NEGATIVE); UROBILINOGEN,URINE 0.2 EU/dL (0.2)
[2021-12-01 23:10] LABS: BACTERIA,URINE Few /HPF (None Seen); SQUAMOUS EPITHELIAL CELL,UR Few /HPF (None Seen)
[2021-12-01] MEDS ORDERED: PIPERACILLIN /TAZOBACTAM 2.25 G VIAL IV ONE (23:47)
[2021-12-02] VITALS: BP 112/68
[2021-12-02 04:00] VITALS: BP 123/68
[2021-12-02] MEDS ORDERED: PIPERACILLIN /TAZOBACTAM 2.25 G VIAL IV ONE (05:56)
[2021-12-02] MEDS: LEVETIRACETAM (500MG) 500 MG in IV NS 0.9% 100 ML IV SCH ×2 (05:56→16:12)
[2021-12-02 06:02] LABS: BASOPHILS % (AUTO) 0.1 % (0.0-2.0); HEMATOCRIT 41 % (33-45); HEMOGLOBIN 13.3 g/dL (11.5-14.8); LYMPHOCYTES # (AUTO) 0.6 K/uL (0.8-4.8); LYMPHOCYTES % (AUTO) 4.7 % (20.0-44.0); MEAN CORPUSCULAR HGB CONC 32 g/dl (31.0-36.0); MEAN CORPUSCULAR VOLUME 93 fL (82-100); MONOCYTES # (AUTO) 1.3 K/uL (0.1-1.30); MONOCYTES % (AUTO) 9.2 % (2.0-12.0); NEUTROPHILS # (AUTO) 11.8 K/uL (1.8-8.9); PLATELET COUNT (AUTO) 268 K/uL (150-450); RED BLOOD CELL COUNT(AUTO) 4.46 MIL/uL (4.0-5.2); WHITE BLOOD COUNT (AUTO) 13.7 K/uL (4.3-11.0)
[2021-12-02 06:23] LABS: CALCIUM, SERUM 8.7 mg/dL (8.5-10.1); CARBON DIOXIDE 28 mmol/L (21-32); CHLORIDE 104 mmol/L (98-107); CREATININE 1.4 mg/dL (0.6-1.3); GLUCOSE 136 mg/dL (74-106); MAGNESIUM 2.1 mg/dL (1.8-2.4); PHOSPHORUS 3.4 mg/dL (2.5-4.9); POTASSIUM 4.3 mmol/L (3.5-5.1); SODIUM SERUM 140 mmol/L (136-145); UREA NITROGEN, BLOOD 32 mg/dL (7-18)
[2021-12-02] MEDS: ZOSYN IVPB 2.25 G in IV D5W 50ml IV SCH ×5 (06:38→17:48)
--- NOTE | 2021-12-02 07:10 | NUR ---
RN NOTE RECEIVED PATIENT IN BED RESTING ALERT ORIENTED X1 ON ROOM AIR O2:97% NPO FOR SWALLOWING EVAL,IV SITE IS ON LAC INTACT PATENT,SAFETY MEASURE IMPLEMENT BED IN LOW POSITON AND LOCKED,SOFT BILATERAL WRIST RESTRAIN IN PLACE,WILL CHECK EVERY 15 MINS FOR SKIN BREAKDOWN AND CIRCULATION,HEAD OF THE BED ELEVATED CONTINUE TO MONITOR.
[2021-12-02] MEDS ORDERED: ZOSYN IVPB 2.25 G in IV D5W 50ml IV SCH (07:30)
[2021-12-02 08:00] VITALS: BP 139/86
[2021-12-02] MEDS: DEXAMETHASONE SOD PHOSPHATE 4 MG/ML VIAL IV SCH ×2 (08:14→16:06)
[2021-12-02 08:31] LABS: CHOLESTEROL 174 mg/dL (<200); HDL CHOLESTEROL 66 mg/dL (40-60); LDL 92 mg/dL (0-99); TRIGLYCERIDES 99 mg/dL (30-150)
--- NOTE | 2021-12-02 10:00 | NUR ---
RN NOTE SWALLOWING EVAL DONE PATIENT IS ON PUREE DIET CONTINUE TO MONITOR.
[2021-12-02 12:00] VITALS: BP 154/93
--- NOTE | 2021-12-02 14:57 | NUR ---
RN NOTE PATIENT HAS MRI BRAIN WO CONTRAST ORDER FROM LUCILA LAUGHLIN,CALLED DAUGHTER REGARDING ANY METAL IN BODY DAUGHTER SAID HER MON HAS THREE STANT IN BODY AND SHE DOESN'T KNOW WHAT KIND OF STANT ARE,MRI TEAM SAID IF DR AWAN THEY CAN DO MRI,NOTIFIED DR LAUGHLIN,MRI TEAM DONT DO MRI FOR RISK, NOTIFIED DR CHESTER,DR LAUGHLIN SAID OK CONTINUE TO MONITOR.
[2021-12-02 16:00] VITALS: BP 147/68
--- NOTE | 2021-12-02 16:49 | NUR ---
RN NOTE PER DOCTOR PARK IS OK FOR MRI WO CONTRAST,NOTIFIED DAUGHTER .
--- NOTE | 2021-12-02 17:16 | NUR ---
RN NOTE MRI NOT DONE,DUE TO PATIENT IS VERY AGITATED,NOT ABLE TO BE STILL,NOTIFIED DR NICK.
--- NOTE | 2021-12-02 18:25 | NUR ---
RN NOTE PATIENT WILL TRANSFER TO [facility] REPORT GIVEN TO ALICE ESTRADABOWLING BALL ASSEMBLER NURSE.
--- NOTE | 2021-12-02 19:25 | NUR ---
RN NOTE PATIENT REMAINS ALERT ORIENTED X1 VERBALLY RESPONSIVE ON ROOM AIR NO SOB NOT ACUTE DISTRESS NOTED PATIENT WILL TRANSFER TO ACUTE HOSPITAL,ENDORSE NEXT COMING SHIFT FOR CONTINUATION OF CARE.
--- NOTE | 2021-12-02 20:10 | NUR ---
RN NOTE PATIENT TRANSFERRED TO [facility] VIA ACLS PROTOCOL. IN NO ACUTE DISTRESS, VS FOLLOWS: T 97.5, BP 118/95, HR 71, O2 96% ON ROOM AIR. ALL BELONGINGS CHECKED AND RECEIVED BY FAMILY AT BEDSIDE. REPORT GIVEN TO EMT. PT TRANSFERRED VIA GURNEY IN STABLE CONDITION.
== END 2021-12-02 20:21 | disposition short-term general hospital (02) | DRG 871 ==
LOC: ER 14:52 → TRANSITION 16:08 → TELE1 19:34 → TELE-TD 20:07 → TELE1 12-02 07:47
PROVIDERS: ADMIT Nurse Practitioner Acute Care; ATTEND Nurse Practitioner Acute Care
DX: A41.9 Sepsis, unspecified organism (principal); G93.41 Metabolic encephalopathy; N17.0 Acute kidney failure with tubular necrosis; I21.A1 Myocardial infarction type 2; G93.6 Cerebral edema; D68.59 Other primary thrombophilia; N39.0 Urinary tract infection, site not specified; E87.20 Acidosis, unspecified; R47.01 Aphasia; Z20.822 Contact with and (suspected) exposure to COVID-19; I48.91 Unspecified atrial fibrillation; I25.10 Atherosclerotic heart disease of native coronary artery without angina pectoris; E78.5 Hyperlipidemia, unspecified; Z79.02 Long term (current) use of antithrombotics/antiplatelets; Z79.899 Other long term (current) drug therapy; Z87.81 Personal history of (healed) traumatic fracture; J44.9 Chronic obstructive pulmonary disease, unspecified; H90.3 Sensorineural hearing loss, bilateral; Z87.891 Personal history of nicotine dependence; R73.9 Hyperglycemia, unspecified; Z98.890 Other specified postprocedural states; G93.9 Disorder of brain, unspecified
CPT/HCPCS: 36415; 70450-TC; 71045-TC; 80048-TC; 80061-TC; 81001; 82247-TC; 82248-TC; 82962-TC; 83605-TC; 83735-TC; 84100-TC; 84484-TC; 85025-TC; 85730-TC; 87040-TC; 87081-TC; 87086-TC; 92526; 92611-TC; G0378; J1100; J1953; J2405; J2543; J7030; J7050; J7060; Q9967

== ENCOUNTER 2021-12-15 20:34 | Inpatient (IN) | payer MEDICARE, OTHER ==
[~2021-12-15] VITALS: Ht 162.6 cm; Wt 43.1 kg
[~2021-12-15 20:34] MED LIST changes: -DOXA8TAB79 PO; -ERTA1VIA4 IJ
--- NOTE | 2021-12-15 21:00 | NUR ---
IV CANNULA G20 ON RIGHT UPPER ARM. BLOOD DRAWN AND SENT TO LAB
--- NOTE | 2021-12-15 21:00 | NUR ---
IV CANNULA G20 ON RIGHT HAND
--- NOTE | 2021-12-15 21:00 | NUR ---
BIBPA. G TUBE REPLACEMENT. CURRENT GT IS IN WRONG LOCATION. PATIENT IS AAOX1. TRYING TO REMOVE LINES. PATIENT HAS MULTIPLE SKIN TEAR ON HER BILATERAL UPPER EXTREMITIES AND WRIST. PLACED IN BED. VITALS CHECKED.
[2021-12-15] MEDS ORDERED: IV NS 0.9% 1,000 ML BAG IV ONE (21:30)
[2021-12-15 22:28] LABS: BASOPHILS % (AUTO) 0.1 % (0.0-2.0); HEMATOCRIT 38 % (33-45); HEMOGLOBIN 12.4 g/dL (11.5-14.8); LYMPHOCYTES # (AUTO) 0.1 K/uL (0.8-4.8); LYMPHOCYTES % (AUTO) 0.8 % (20.0-44.0); MEAN CORPUSCULAR HGB CONC 33 g/dl (31.0-36.0); MEAN CORPUSCULAR VOLUME 94 fL (82-100); MONOCYTES # (AUTO) 0.5 K/uL (0.1-1.30); MONOCYTES % (AUTO) 2.6 % (2.0-12.0); NEUTROPHILS % (AUTO) 96.5 % (43.0-81.0); PLATELET COUNT (AUTO) 207 K/uL (150-450); RED BLOOD CELL COUNT(AUTO) 4.03 MIL/uL (4.0-5.2); WHITE BLOOD COUNT (AUTO) 17.6 K/uL (4.3-11.0)
--- NOTE | 2021-12-15 22:32 | NUR ---
COVID SWAB DONE AND SENT TO LAB
[2021-12-15 22:47] LABS: CALCIUM, SERUM 8.1 mg/dL (8.5-10.1); CREATININE 1.3 mg/dL (0.6-1.3); POTASSIUM 4.3 mmol/L (3.5-5.1)
[2021-12-15] MEDS ORDERED: CEFTRIAXONE 1GM BAG (ER ONLY) 50 ML IV ONE ×2 (23:00→23:11)
[2021-12-15] MEDS ORDERED: DIATR MEGLU/DIATRIZOATE SODIUM 30 ML BOTTLE (GASTROGRAPHIN) ONE ×2 (23:26→23:29)
[2021-12-15] MEDS ORDERED: ONDANSETRON HCL/PF 4 MG/2 ML VIAL IVP PRN (23:30)
[2021-12-15] MEDS ORDERED: MAG HYDROX/AL HYDROX/SIMETH 30 ML UDC PO PRN (23:30)
[2021-12-15] MEDS ORDERED: Z GUARD REMEDY 4 OZ OINT TP PRN (23:30)
[2021-12-15] MEDS ORDERED: ACETAMINOPHEN 325 MG TABLET PO PRN (23:30)
[2021-12-16] MEDS ORDERED: IV NS 0.9% 500 ML IV ONE (00:30)
--- NOTE | 2021-12-16 01:08 | NUR ---
RECEIVED CRITICAL RESULT FOR PRO CALCITONIN. 32.40. ALEXSANDRA CHAVEZ MADE AWARE. WAITING FOR FURTHER ORDERS
--- NOTE | 2021-12-16 01:18 | NUR ---
REPORT GIVEN TO SEAN LIND
[2021-12-16 01:50] VITALS: BP 109/66
--- NOTE | 2021-12-16 02:10 | NUR ---
TRANSFERRED TO ROOM VIA BED.
[2021-12-16] MEDS: IV D5/0.45 NACL 1,000 ML IV PRN ×2 (03:04→16:40)
[2021-12-16 03:23] LABS: BILIRUBIN,DIRECT 0.5 mg/dL (0.0-0.2); BILIRUBIN,TOTAL 1.1 mg/dL (0.2-1.0)
[2021-12-16 03:30] VITALS: BP 109/54
--- NOTE | 2021-12-16 05:27 | NUR ---
CLOSING NOTES: ALERT TO NURSE AT THE BEDSIDE CONFUSED (DEMENTIA) UNCOOPERATIVE PULLS AWAY FROM THE NURSE WHEN b/p TAKEN OR BEING CLEANED D/T INCONTINENCE NEW ADMIT PHOTOS TAE OF MULTIPLE SKIN TEARS AND STG 2 ON THE SACRAL AREA LATECT ACID 2.6 ONE PRIOR IS 2.3 MD CHAVEZ MADE AWARE STATED CONTINUE THE IV FLUIDS
[2021-12-16 07:17] LABS: BASOPHILS % (AUTO) 0.2 % (0.0-2.0); HEMATOCRIT 35 % (33-45); HEMOGLOBIN 11.4 g/dL (11.5-14.8); LYMPHOCYTES # (AUTO) 0.2 K/uL (0.8-4.8); LYMPHOCYTES % (AUTO) 1.4 % (20.0-44.0); MEAN CORPUSCULAR HGB CONC 32 g/dl (31.0-36.0); MEAN CORPUSCULAR VOLUME 94 fL (82-100); MONOCYTES # (AUTO) 0.3 K/uL (0.1-1.30); MONOCYTES % (AUTO) 2.1 % (2.0-12.0); NEUTROPHILS # (AUTO) 15.5 K/uL (1.8-8.9); NEUTROPHILS % (AUTO) 96.3 % (43.0-81.0); PLATELET COUNT (AUTO) 205 K/uL (150-450); RED BLOOD CELL COUNT(AUTO) 3.74 MIL/uL (4.0-5.2); WHITE BLOOD COUNT (AUTO) 16.1 K/uL (4.3-11.0)
--- NOTE | 2021-12-16 07:20 | NUR ---
RN OPENING NOTES RECEIVED PATIENT ASLEEP IN BED, EASILY AROUSED. A/O X1. NO SIGNS OF ACUTE DISTRESS NOTED. ON ROOM AIR TOLERATING WELL. NO S/SX OF RESPIRATORY DISTRESS NOTED. NO SOB, BREATHING EVEN AND UNLABORED. NOTED WITH IV ACCESS ON RIGHT THUMB #20G, INTACT AND RIGHT UPPER ARM #20G, INTACT AND PATENT WITH D5 1/2 NS AT 75 ML/HR RUNNING. NOTED WITH G-TUBE INTACT. SAFETY MEASURE IN PLACE. BED IN LOWEST AND LOCKED POSITION, SIDE RAILS UP X2, CALL LIGHT PLACED WITHIN EASY REACH. WILL CONTINUE TO MONITOR PATIENT.
[2021-12-16 08:00] VITALS: BP 112/68
[2021-12-16] MEDS ORDERED: AMLO5TAB4 PO (08:03)
[2021-12-16] MEDS ORDERED: QUET25TA GT (08:03)
[2021-12-16] MEDS ORDERED: NICO-676 TD (08:03)
[2021-12-16] MEDS ORDERED: HYDR-4076 GT (08:03)
[2021-12-16] MEDS ORDERED: LACO10SO GT (08:03)
[2021-12-16] MEDS ORDERED: OLAN2.5T3 GT (08:03)
[2021-12-16] MEDS ORDERED: LANS15CA13 GT (08:03)
[2021-12-16] MEDS ORDERED: LORA-259 GT (08:03)
[2021-12-16] MEDS ORDERED: INSU100V39 SQ (08:03)
[2021-12-16] MEDS ORDERED: ACET325T53 GT (08:03)
[2021-12-16] MEDS ORDERED: AMIN887L GT (08:03)
[2021-12-16] MEDS ORDERED: IPRA3AMP23 IH (08:03)
[2021-12-16] MEDS ORDERED: LOSA50TA39 GT (08:03)
[2021-12-16] MEDS ORDERED: POLY17PO4 GT (08:03)
[2021-12-16] MEDS ORDERED: METO50TA16 GT (08:03)
[2021-12-16] MEDS ORDERED: DEXA4TAB GT (08:03)
[2021-12-16 08:08] LABS: CALCIUM, SERUM 8.2 mg/dL (8.5-10.1); CREATININE 1.1 mg/dL (0.6-1.3); MAGNESIUM 2.2 mg/dL (1.8-2.4); POTASSIUM 4.1 mmol/L (3.5-5.1)
--- NOTE | 2021-12-16 08:26 | NUR ---
WOUND CARE CONSULT: PT PRESENTS WITH MULTIPLE AREAS OF SKIN DISCOLORATION, SACRAL DEEP TISSUE INJURY, RT HIP DISCOLORATION, LEFT LOWER LEG DISCOLORATION WITH OPEN WOUND, UPPER EXTREMITY SKIN TEARS, ALL PRESENT ON ADMISSION. DR CEDENO AND DR FORD CALLED FOR SURGICAL AND DPM CONSULT REQUESTS. RECOMMENDATIONS MADE FOR SKIN PROTECTION. DISCUSSED WITH NURSING STAFF. MD IN AGREEMENT WITH PLAN OF CARE.
[2021-12-16] MEDS: PANTOPRAZOLE 40 MG VIAL IV SCH (08:34)
[2021-12-16] MEDS ORDERED: ZOSYN IVPB 3.375 G in IV D5W 50ml IV ONE (09:00)
[2021-12-16 09:24] LABS: THYROID STIMULATING HORMONE 0.599 uIU/mL (0.358-3.74)
[2021-12-16 10:48] LABS: BAND % (MANUAL) 16 % (0.0-5.0); LYMPHOCYTES % (MANUAL) 1 % (16-48); NEUTROPHILS % (MANUAL) 81 (42-76)
[2021-12-16 10:49] LABS: MONOCYTES % (MANUAL) 2 % (0-11.0)
[2021-12-16] MEDS ORDERED: PIPERACILLIN /TAZOBACTAM 4.5 G in IV D5W 50 ML IV SCH (12:00)
[2021-12-16] MEDS: PIPERACILLIN /TAZOBACTAM 3.375 G in IV D5W 100 ML IV SCH (16:28)
[2021-12-16 17:32] VITALS: BP 108/72
--- NOTE | 2021-12-16 18:40 | NUR ---
RN CLOSING NOTE PATIENT ASLEEP IN BED, EASILY AROUSED. A/O X0. NO SIGNS OF ACUTE DISTRESS NOTED. STABLE ON ROOM AIR. NO S/SX OF RESPIRATORY DISTRESS NOTED. NO SOB, BREATHING EVEN AND UNLABORED. IV ACCESS ON RIGHT THUMB #20G, INTACT, SL AND RIGHT UPPER ARM #20G, INTACT AND PATENT WITH D5 1/2 NS AT 75 ML/HR RUNNING. G-TUBE INTACT. STILL WAITING FOR GI CONSULT. WOUND CARE TREATMENT PROVIDED. SAFETY MEASURE IN PLACE. BED IN LOWEST AND LOCKED POSITION, SIDE RAILS UP X2, CALL LIGHT PLACED WITHIN EASY REACH. WILL ENDORSE TO NEXT SHIFT OR CONTINUITY OF CARE.
--- NOTE | 2021-12-16 19:25 | NUR ---
MS RN OPENING NOTE RECEIVED PATIENT IN BED; AWAKE, ALERT AND ORIENTED X 0. BREATHING EVEN AND NONLABORED. ON ROOM AIR, TOLERATING WELL. NOT IN ANY FORM OF RESPIRATORY DISTRESS. NO S/S OF ANY PAIN OR DISCOMFORT NOTED AT THIS TIME. WITH IV ACCESS ON RIGHT THUMB 20g; PATENT, INTACT AND SALINE LOCKED AND RIGHT UPPER ARM 20g; PATENT AND INTACT INFUSING WITH D5 1/2 NS REGULATED AT 75 ML/HR; FLUSHES WELL. WITH G-TUBE INTACT. SAFETY MEASURES IMPLEMENTED: CALL LIGHT AND TABLE WITHIN REACH, HEAD OF BED ELEVATED, SIDE RAILS UP X 3, BED IN LOWEST LOCKED POSITION. WILL CONTINUE PLAN OF CARE.
[2021-12-16 20:00] VITALS: BP 136/79
--- NOTE | 2021-12-16 22:37 | NUR ---
RN NOTE RECEIVED A CALL FROM LAB. PATIENT IS POSITIVE FOR BLOOD CULTURE; HOSPITALIST SCOTT ELLIOTT MADE AWARE WITH NO NEW ORDER MADE.
[2021-12-16] MEDS ORDERED: CEFTRIAXONE 1 G in IV D5W 50 ML IV SCH (23:00)
[2021-12-17] VITALS (8 sets, daily range): BP systolic 106–139; BP diastolic 56–79
[2021-12-17] MEDS: PIPERACILLIN /TAZOBACTAM 3.375 G in IV D5W 100 ML IV SCH ×3 (01:00→16:38)
--- NOTE | 2021-12-17 06:45 | NUR ---
MS RN CLOSING NOTE PATIENT IN BED; AWAKE, A/O X 0. STABLE ON ROOM AIR. RESPIRATION EQUAL AND UNLABORED. NOT IN ANY FORM OF RESPIRATORY DISTRESS. NO S/S OF ANY PAIN OR DOSCOMFORT NOTED AT THIS TIME. WITH IV ACCESS ON RIGHT THUMB 20g; PATENT, INTACT AND SALINE LOCKED AND RIGHT UPPER ARM 20g; PATENT AND INTACT INFUSING WITH D5 1/2 NS REGULATED @ 75 ML/HR; FLUSHES WELL. WITH G-TUBE INTACT. NEEDS ATTENDED. SAFETY MEASURES MAINTAINED: CALL LIGHT AND TABLE WITHIN REACH, HEAD OF BED ELEVATED, SIDE RAILS UP X 3, BED IN LOWEST LOCKED POSITION. ENDORSED TO MORNING SHIFT FOR DEACON.
--- NOTE | 2021-12-17 07:25 | NUR ---
RN OPENING NOTES RECEIVED PATIENT AWAKE IN BED. NO SIGNS OF ACUTE DISTRESS NOTED. STABLE ON ROOM AIR, TOLERATING WELL. NO S/SX OF RESPIRATORY DISTRESS NOTED. NO SOB, BREATHING EVEN AND UNLABORED. NOTED WITH IV ACCESS ON RIGHT THUMB #20G, INTACT, SL AND RIGHT UPPER ARM #20G, INTACT AND PATENT WITH D5 1/2 NS AT 75 ML/HR RUNNING. NOTED WITH G-TUBE INTACT. SCHEDULED FOR PEG PLACEMENT TODAY WITH DR. WISDOM. PATIENT REMAINS ON NPO STATUS. SAFETY MEASURE IN PLACE. BED IN LOWEST AND LOCKED POSITION, SIDE RAILS UP X2, CALL LIGHT PLACED WITHIN EASY REACH. WILL CONTINUE TO MONITOR PATIENT.
[2021-12-17] MEDS: PANTOPRAZOLE 40 MG VIAL IV SCH (08:19)
--- NOTE | 2021-12-17 09:42 | NUR ---
RN NOTE RECEIVED A CALL FROM LAB BLOOD CULTURE RESULT SHOWS GRAM POSITIVE COCCI IN CLUSTERS, DR. BLAKE HANSEN MADE AWARE, NNO AT THIS TIME.
--- NOTE | 2021-12-17 13:03 | NUR ---
RN NOTE PATIENT WAS PICKED UP BY OR STAFF FOR PEG REINSERTION AT AROUND 1301 LEFT IN STABLE CONDITION. V/S TAKEN AND FOLLOWS: BP 118/82, P-87, T- 97.8, R-18, O2 SAT 94% RA.
--- NOTE | 2021-12-17 14:05 | NUR ---
CLINICAL NEUROPSYCHOLOGIST NOTE -S/P SX PATIENT CAME BACK TO THE UNIT S/P EGD + PEG, IN STABLE CONDITION AND REPORT WAS GIVEN BY RN . OLD TUBE WAS REMOVED AND REPLACED WITH NEW PEG. NEW ORDER FOR IV ATB ORDERED QID X3-5 DAYS. PER , NEW PEG TUBE CAN BE USED FOR WATER AND MEDICATIONS STARTING TOMORROW 12/19/51 AND CAN BE USED FOR FEEDING 2 DAYS AFTER SX.
--- NOTE | 2021-12-17 18:51 | NUR ---
RN CLOSING NOTE PATIENT LAYING IN BED, ASLEEP. REMAINS STABLE ON ROOM AIR, NO SOB NOTED, BREATHING EVEN AND UNLABORED. IV ACCESS ON RIGHT UPPER ARM INTACT AND PATENT WITH D5 1/2 NS @75 ML/HR RUNNING. S/P PEG PLACEMENT AND REMOVAL OF OLD PEG THIS AFTERNOON WITH DR. WISDOM. ABDOMINAL BINDER IN PLACE. PER MD OK TO USE PEG TOMORROW MORNING FOR WATER AND MEDICATIONS AND OK TO USE PEG FOR FEEDING IN 2 DAYS. SAFETY MEASURE IN PLACE. BED IN LOWEST AND LOCKED POSITION, SIDE RAILS UP X3, CALL LIGHT PLACED WITHIN EASY REACH. WILL ENDORSE TO NEXT SHIFT FOR CONTINUITY OF CARE.
--- NOTE | 2021-12-17 19:15 | NUR ---
RN OPENING NOTE PATIENT IN BED, AWAKE. PATIENT IS INCOHERENT. PATIENT IS ON RA, TOLERATING WELL, BREATHING EVEN AND UNLABORED. PATIENT IS S/P PEG PLACEMENT TODAY, ABDOMINAL BINDER IN PLACE. DRESSING C/D/I ON THE OLD PEG SITE, NEW PEG TUBE, NO BLEEDING NOTED. PATIENT NPO AT THIS TIME UNTIL TOMORROW MORNING. PATIENT NOT IN PAIN VIA FLACC. SAFETY MEASURES IN PLACE: BED LOCKED AND IN LOWEST POSITION, CALL LIGHT WITHIN REACH, SIDE RAILS UP. WILL MONITOR PATIENT CLOSELY.
[2021-12-17] MEDS: IV D5/0.45 NACL 1,000 ML IV PRN (22:43)
[2021-12-18] MEDS: PIPERACILLIN /TAZOBACTAM 3.375 G in IV D5W 100 ML IV SCH ×3 (01:18→16:25)
[2021-12-18 06:29] LABS: BASOPHILS # (AUTO) 0.4 K/uL (0.0-0.2); BASOPHILS % (AUTO) 2.6 % (0.0-2.0); EOSINOPHILS % (AUTO) 0.5 % (0.0-6.0); HEMATOCRIT 41 % (33-45); HEMOGLOBIN 13.1 g/dL (11.5-14.8); LYMPHOCYTES # (AUTO) 0.5 K/uL (0.8-4.8); LYMPHOCYTES % (AUTO) 3.2 % (20.0-44.0); MEAN CORPUSCULAR HGB CONC 32 g/dl (31.0-36.0); MEAN CORPUSCULAR VOLUME 96 fL (82-100); MONOCYTES # (AUTO) 0.3 K/uL (0.1-1.30); MONOCYTES % (AUTO) 1.9 % (2.0-12.0); NEUTROPHILS # (AUTO) 13.7 K/uL (1.8-8.9); NEUTROPHILS % (AUTO) 91.8 % (43.0-81.0); PLATELET COUNT (AUTO) 104 K/uL (150-450); RED BLOOD CELL COUNT(AUTO) 4.27 MIL/uL (4.0-5.2); WHITE BLOOD COUNT (AUTO) 14.9 K/uL (4.3-11.0)
--- NOTE | 2021-12-18 06:45 | NUR ---
RN CLOSING NOTE PATIENT IN BED, EYES CLOSED, EASILY AWAKENED WITH VERBAL AND TOUCH STIMULI. PATIENT IS UNCOOPERATIVE WITH CARE AT TIMES, AND COMBATIVE WITH STAFF. PATIENT IS ON RA, TOLERATING WELL, BREATHING EVEN AND UNLABORED. PATIENT IS S/P PEG PLACEMENT, ABDOMINAL BINDER IN PLACE. DRESSING C/D/I ON THE OLD PEG SITE, NEW PEG TUBE, NO BLEEDING NOTED. DRESSINGS CHANGED, WOUND CARE RENDERED. PATIENT NPO AT THIS TIME, OK TO USE GT FOR MEDS AND WATER TODAY. PATIENT NOT IN PAIN VIA FLACC. SAFETY MEASURES IN PLACE: BED LOCKED AND IN LOWEST POSITION, CALL LIGHT WITHIN REACH, SIDE RAILS UP. ALL NEEDS MET AND ATTENDED. ALL ORDERS CARRIED OUT. WILL ENDORSE TO DAY SHIFT NURSE FOR DEACON.
--- NOTE | 2021-12-18 07:10 | NUR ---
MS RN OPENING NOTES: RECEIVED PATIENT IN BED ASLEEP EASILY AROUSED WITH STIMULI. A/O X 1 WITH EPISODES OF CONFUSION AND FORGETFULNESS. NO SOB OR CARDIAC DISTRESS NOTED. DENIES ANY PAIN AT THIS TIME. NOTED WITH IV ACCESS ON RIGHT FOREARM G 20 PATENT AND INTACT INFUSING D 5 1/2 BS @75ML/HR. NOTED WITH KOTHARI CATHETER DRAINING CLEAR YELLOW COLORED URINE BY GRAVITY. NOTED WITH DRY DRESSING/ WRAP BOTH ARMS DUE TO SKIN ISSUES PER ENDORSEMENT. SAFETY PRECAUTIONS MAINTAINED: BED LOCKED AND IN LOWEST POSITION, SIDE RAILS UP X 2 CALL LIGHT WITH IN EASY REACH FOR HELP. KEPT RESTED AND COMFORTABLE. MONITOR ACCORDINGLY.
[2021-12-18 07:18] LABS: MAGNESIUM 2.4 mg/dL (1.8-2.4); PHOSPHORUS 3.2 mg/dL (2.5-4.9); POTASSIUM 3.7 mmol/L (3.5-5.1); TOTAL PROTEIN, SERUM 6.2 g/dL (6.4-8.2)
[2021-12-18 07:30] LABS: ALBUMIN 1.8 g/dL (3.4-5.0); CREATININE 1.3 mg/dL (0.6-1.3)
[2021-12-18 08:00] VITALS: BP 115/56
[2021-12-18] MEDS: PANTOPRAZOLE 40 MG VIAL IV SCH (08:47)
--- NOTE | 2021-12-18 11:00 | NUR ---
RN NOTES: INFORMED DR LOZANO IF HE CAN GIVE US CODE STATUS, IN POLST PT IS IN DNR. WAITING FOR MD ORDER.
[2021-12-18] MEDS: IV D5/0.45 NACL 1,000 ML IV PRN (11:54)
[2021-12-18 16:00] VITALS: BP 102/74
--- NOTE | 2021-12-18 18:41 | NUR ---
MS RN CLOSING NOTES: PATIENT IN BED ASLEEP EASILY AROUSED WITH STIMULI. A/O X 1 WITH EPISODES OF CONFUSION AND FORGETFULNESS. NO SOB OR CARDIAC DISTRESS NOTED. DENIES ANY PAIN AT THIS TIME. NOTED WITH IV ACCESS ON RIGHT FOREARM G 20 PATENT AND INTACT INFUSING D 5 1/2 BS @75ML/HR. NOTED WITH KOTHARI CATHETER DRAINING CLEAR YELLOW COLORED URINE BY GRAVITY. NOTED WITH DRY DRESSING/ WRAP BOTH ARMS DUE TO SKIN ISSUES PER ENDORSEMENT. SAFETY PRECAUTIONS MAINTAINED: BED LOCKED AND IN LOWEST POSITION, SIDE RAILS UP X 2 CALL LIGHT WITH IN EASY REACH FOR HELP. KEPT RESTED AND COMFORTABLE. MONITOR ACCORDINGLY. ENDORSED TO [facility] SHIFT FOR DEACON.
--- NOTE | 2021-12-18 19:15 | NUR ---
RN OPENING NOTE PATIENT IN BED, AWAKE. PATIENT IS A/O X 1 AT THIS TIME, CONFUSED. PATIENT IS ON RA, TOLERATING WELL, BREATHING EVEN AND UNLABORED. PATIENT'S GT PATENT AND INTACT, DRESSING ON THE OLD DRESSING C/D/I. ABDOMINAL BINDER IN PLACE. EVER 20 G PATENT AND INTACT WITH ONGOING D5 1/2 NS AT 75 ML/HR. PATIENT NOT IN PAIN VIA FLACC. SAFETY MEASURES IN PLACE: BED LOCKED AND IN LOWEST POSITION, CALL LIGHT WITHIN REACH, SIDE RAILS UP. WILL MONITOR PATIENT CLOSELY.
[2021-12-18 20:00] VITALS: BP 128/76
[2021-12-19] MEDS: PIPERACILLIN /TAZOBACTAM 3.375 G in IV D5W 100 ML IV SCH ×2 (00:35→09:32)
--- NOTE | 2021-12-19 05:30 | NUR ---
RFA 22 G IV ACCESS ESTABLISHED. PATENT AND INTACT. IVF RESUMED.
--- NOTE | 2021-12-19 06:46 | NUR ---
304-2 RN CLOSING NOTE PATIENT IN BED, EYES CLOSED, EASILY AWAKENED WITH VERBAL AND TOUCH STIMULI. PATIENT IS UNCOOPERATIVE WITH CARE AT TIMES, PATIENT RE-DIRECTABLE. PATIENT IS ON RA, TOLERATING WELL, BREATHING EVEN AND UNLABORED. PATIENT IS S/P PEG PLACEMENT, ABDOMINAL BINDER IN PLACE. DRESSING C/D/I ON THE OLD PEG SITE, OLD SITE STILL OPEN AND LEAKING FLUID. DRESSINGS CHANGED, WOUND CARE RENDERED. PATIENT NOT IN PAIN VIA FLACC. SAFETY MEASURES IN PLACE: BED LOCKED AND IN LOWEST POSITION, CALL LIGHT WITHIN REACH, SIDE RAILS UP. ALL NEEDS MET AND ATTENDED. ALL ORDERS CARRIED OUT. WILL ENDORSE TO DAY SHIFT NURSE FOR DEACON.
--- NOTE | 2021-12-19 07:20 | NUR ---
MS RN OPENING NOTES: RECEIVED PATIENT IN BED ASLEEP EASILY AROUSED WITH STIMULI. A/O X 1 WITH EPISODES OF CONFUSION AND FORGETFULNESS. NO SOB OR DISTRESS NOTED . NO C/O OF ANY PAIN AND DISCOMFORT AT THIS TIME. NOTED WITH IV ACCESS ON RIGHT FA G 20 PATENT AND INTACT INFUSING D 5 1/2 BS @75ML/HR. . NOTED WITH DRY DRESSING/ WRAP BOTH ARMS. SAFETY PRECAUTIONS MAINTAINED: BED LOCKED AND IN LOWEST POSITION, SIDE RAILS UP X 2 CALL LIGHT WITH IN EASY REACH FOR HELP. KEPT RESTED AND COMFORTABLE.WILL CONTINUE TO MONITOR .
[2021-12-19 08:00] VITALS: BP 134/84
[2021-12-19] MEDS: PANTOPRAZOLE 40 MG VIAL IV SCH (09:31)
[2021-12-19] MEDS ORDERED: JEVITY 1.2 CAL 1,000 ML BOTTLE GT PRN ×2 (12:00)
[2021-12-19 16:00] VITALS: BP 118/73
[2021-12-19] MEDS: CLOTRIMAZOLE 1% 15 GM TUBE TP SCH (18:00)
--- NOTE | 2021-12-19 18:00 | NUR ---
RN NOTES COTRIMAZOLE CREAM WAS NOT ADMINISTERED - NOT AVAILABLE YET , FOLLOWED FROM PHARMACY
[2021-12-19] MEDS: IV D5/0.45 NACL 1,000 ML IV PRN (18:38)
--- NOTE | 2021-12-19 18:55 | NUR ---
MS RN CLOSING NOTES: PATIENT IN BED AWAKE . A/O X 1 WITH EPISODES OF CONFUSION AND FORGETFULNESS. NO SOB OR DISTRESS NOTED . ALL DUE MEDS GIVEN ORDERED , NO C/O OF ANY PAIN AND DISCOMFORT AT THIS TIME. NOTED WITH IV ACCESS ON RIGHT FA G 20 PATENT AND INTACT INFUSING D 5 1/2 NS @75ML/HR. . DRESSING/ WRAP BOTH ARMS. SACRAL DTI WOUND DRESSING DONE , OLD GT SITE STILL NOTED WITH LEAKING FLUIDS , DRESSING DONE X [address] HUGHES MADE AWARE REGARIDNG THE GTUBE FEEDING NOT STARTED YET DUE TO LEAKING FLUIDS FROM THE OLD SITE SAFETY PRECAUTIONS MAINTAINED: BED LOCKED AND IN LOWEST POSITION, SIDE RAILS UP X 2 CALL LIGHT WITH IN EASY REACH FOR HELP. KEPT RESTED AND COMFORTABLE.WILL CONTINUE TO MONITOR .
--- NOTE | 2021-12-19 19:26 | NUR ---
RN OPENING NOTE RECEIVED PATIENT IN BED AAOX1 WITH CONFUSED.TOLERATING WELL ON RM AIR,NO SOB/DISTRESS NOTED,BREATHING EVEN AND UNLABORED.IV ACCESS ON RFA 20G PATENT AND INTACT WITH ONGOING D5 1/2 NS AT 75 ML/HR.GTUBE INTACT AND PATENT,SAFETY MEASURES IN PLACE: BED LOCKED AND IN LOWEST POSITION, CALL LIGHT WITHIN REACH, SIDE RAILS UP.WILL CONTINUE TO MONITOR.
[2021-12-19 20:00] VITALS: BP 122/68
[2021-12-19] MEDS: PIPERACILLIN /TAZOBACTAM 2.25 G in IV D5W 50 ML IV SCH (20:32)
[2021-12-20] MEDS: PIPERACILLIN /TAZOBACTAM 2.25 G in IV D5W 50 ML IV SCH ×2 (05:02→12:44)
[2021-12-20] MEDS: IV D5/0.45 NACL 1,000 ML IV PRN (05:44)
--- NOTE | 2021-12-20 06:18 | NUR ---
RN CLOSING NOTES; PATIENT IN BED AAOX1 WITH CONFUSED.TOLERATING WELL ON RM AIR,NO SOB/DISTRESS NOTED,BREATHING EVEN AND UNLABORED.DUE MEDS GIVEN ORDER,ALL NEEDS ATTENDED,IV ACCESS ON RFA 20G PATENT AND INTACT WITH ONGOING D5 1/2 NS AT 75 ML/HR.GTUBE INTACT AND PATENT NOT STARTED YET DUE TO LEAKING THE OLD GT SITE,SAFETY MEASURES IN PLACE: BED LOCKED AND IN LOWEST POSITION, CALL LIGHT WITHIN REACH, SIDE RAILS UP.WILL ENDORSED TO NEXT SHIFT.
--- NOTE | 2021-12-20 07:50 | NUR ---
MS RN OPENING NOTES: RECEIVED PATIENT IN BED ASLEEP EASILY ROUSED. A/O X 1 WITH EPISODES OF CONFUSION AND FORGETFULNESS. NO S/S OF SOB OR DISTRESS NOTED . NO C/O OF ANY PAIN AND DISCOMFORT AT THIS TIME. NOTED WITH IV ACCESS ON RIGHT FA G 20 PATENT AND INTACT INFUSING D 5 1/2 NS @75ML/HR. G-TUBE NOTED, DRESSING C,D,I, WITH DRY DRESSING/ WRAP BOTH ARMS. SAFETY PRECAUTIONS MAINTAINED: BED LOCKED AND IN LOWEST POSITION, SIDE RAILS UP X 2 CALL LIGHT WITH IN EASY REACH FOR HELP, WILL CONTINUE WITH PLAN ON CARE DURING SHIFT.
[2021-12-20 08:00] VITALS: BP 126/79
[2021-12-20] MEDS ORDERED: PANTOPRAZOLE 40 MG/PACK PACK GT SCH (09:00)
[2021-12-20] MEDS: CLOTRIMAZOLE 1% 15 GM TUBE TP SCH (09:16)
--- NOTE | 2021-12-20 12:27 | NUR ---
MS RN DC NOTES; PT IS CLINICALLY STABLE FOR DC PER MD. DC VITALS WNL, BP-126/79, HR- 79, RR-20, 02 SAT- 98%. PT UNABLE TO SIGN FOR DC INSTRUCTIONS AND BELONGINGS, DOCUMENTS SIGNED BY 2 BRAZER CONTROLLED ATMOSPHERIC FURNACE. REPORT GIVEN TO RN AT [facility] BY PHONE AND IN PERSON TO EMT STAFF, NATE, RUN# [id number]. IV ACCESS AND ID BAND REMOVED. PT LEFT VIA [facility].
== END 2021-12-20 12:30 | DRG 871 ==
LOC: ER 20:37 → MED 12-16 01:27
PROVIDERS: ADMIT Registered Nurse
PROC: 0DH63UZ Insertion of Feeding Device into Stomach, Percutaneous Approach (ICD-10-PCS; principal; 2021-12-17)
DX: A41.9 Sepsis, unspecified organism (principal); J15.9 Unspecified bacterial pneumonia; N17.0 Acute kidney failure with tubular necrosis; K94.23 Gastrostomy malfunction; J44.0 Chronic obstructive pulmonary disease with (acute) lower respiratory infection; E87.20 Acidosis, unspecified; Y84.8 Other medical procedures as the cause of abnormal reaction of the patient, or of later complication, without mention of misadventure at the time of the procedure; Y92.9 Unspecified place or not applicable; Z20.822 Contact with and (suspected) exposure to COVID-19; J44.9 Chronic obstructive pulmonary disease, unspecified; I48.91 Unspecified atrial fibrillation; F03.90 Unspecified dementia, unspecified severity, without behavioral disturbance, psychotic disturbance, mood disturbance, and anxiety; E78.5 Hyperlipidemia, unspecified; D63.8 Anemia in other chronic diseases classified elsewhere; M20.42 Other hammer toe(s) (acquired), left foot; M20.41 Other hammer toe(s) (acquired), right foot; L89.156 Pressure-induced deep tissue damage of sacral region; S81.812A Laceration without foreign body, left lower leg, initial encounter; X58.XXXA Exposure to other specified factors, initial encounter; Z66 Do not resuscitate; Z87.891 Personal history of nicotine dependence; Z79.02 Long term (current) use of antithrombotics/antiplatelets
CPT/HCPCS: 36415; 43246; 71045-TC; 74018; 80048-TC; 80053-TC; 82247-TC; 82248-TC; 83605-TC; 83735-TC; 84100-TC; 84443-TC; 85025-TC; 85730-TC; 87040-TC; A6403; C9113; C9803; G0378; J0696; J2543; J2704; J3490; J7030; J7060; Q9963

== ENCOUNTER 2021-12-24 09:09 | Emergency (ER) | payer MEDICARE, OTHER ==
[~2021-12-24] VITALS: Ht 157.5 cm; Wt 44.0 kg
[~2021-12-24 09:09] MED LIST changes: +ACET325T53 GT; +AMIN887L GT; +AMLO5TAB4 PO; +DEXA4TAB GT; +HYDR-4076 GT; +INSU100V39 SQ; +IPRA3AMP23 IH; +LACO10SO GT; +LANS15CA13 GT; +LORA-259 GT; +LOSA50TA39 GT; +METO50TA16 GT; +NICO-676 TD; +OLAN2.5T3 GT; +POLY17PO4 GT; +QUET25TA GT
--- NOTE | 2021-12-24 09:30 | NUR ---
karen DEAN from [facility] for g tube replacement. accidentally pulled out last night.
--- NOTE | 2021-12-24 09:35 | NUR ---
at bedside. Gtube replaced. requested for xray
--- NOTE | 2021-12-24 09:40 | NUR ---
gtube dressing applied
--- NOTE | 2021-12-24 09:41 | NUR ---
abdominal binder applied
[2021-12-24] MEDS ORDERED: DIATR MEGLU/DIATRIZOATE SODIUM 30 ML BOTTLE (GASTROGRAPHIN) ONE (09:46)
--- NOTE | 2021-12-24 09:54 | NUR ---
Nini hammer in EDM - 12/24/21 at 0954 by BOB MD at [facility]. Leyda gunderson. requested for xray
--- NOTE | 2021-12-24 09:59 | NUR ---
[facility] ETA 1200.
[2021-12-24] MEDS ORDERED: DIATR MEGLU/DIATRIZOATE SODIUM 30 ML BOTTLE (GASTROGRAPHIN) PO ONE (10:00)
--- NOTE | 2021-12-24 12:00 | NUR ---
picked up by transport in stable condition.
[2021-12-24 12:01] VITALS: BP 90/50
== END 2021-12-24 12:03 ==
LOC: ER 09:11
DX: Z43.1 Encounter for attention to gastrostomy (principal); I48.91 Unspecified atrial fibrillation; Z79.899 Other long term (current) drug therapy
CPT/HCPCS: 99284; 43762; 74018; Q9963 ×2